=== PATIENT | male | born 1960 | race African-American/Black ===

== ENCOUNTER 2020-09-16 16:54 | Emergency (ER) | payer SELFPAY ==
[~2020-09-16] VITALS: Ht 185.4 cm; Wt 100.0 kg
[2020-09-16 17:02] VITALS: BP 205/111
[2020-09-16] MEDS ORDERED: SODIUM CHLORIDE 0.9% 1,000 ML IV ONE ×2 (18:45→20:45)
[2020-09-16 21:07] LABS: CHLORIDE 107 mEq/L (98-107)
[2020-09-16 21:14] LABS: BETA HYDROXYBUTYRATE 0.1 mMol/L (0.0-0.3); PHOSPHORUS 4.3 mg/dL (2.5-4.9)
[2020-09-16] MEDS ORDERED: INSULIN REGULAR (HUMULIN R) 300UNITS/3ML VIAL SUBCUT ONE (22:30)
== END 2020-09-16 22:51 | disposition home or self-care (01) ==
LOC: ER 16:54
DX: E11.9 Type 2 diabetes mellitus without complications (principal); I10 Essential (primary) hypertension; R53.1 Weakness; R00.0 Tachycardia, unspecified
CPT/HCPCS: 36415; 80053; 82010; 82962; 83605; 83735; 84100; 93005; 96360; 96372; 99284; J7030